=== PATIENT | female | born 1950 | race Two or more races ===

== ENCOUNTER 2020-11-25 01:40 | Inpatient (IN) | payer BC, MEDICAID ==
[~2020-11-25] VITALS: Ht 160 cm; Wt 87.8 kg
[2020-11-25] MEDS ORDERED: METOPROLOL TARTRATE 1MG/1ML-5ML VIAL IV ONE (02:00)
[2020-11-25] MEDS ORDERED: LABETALOL HCL 5 MG/ML 4ML SYRINGE IV ONE (02:00)
[2020-11-25 05:28] LABS: Basophils # (auto) 0 10 ^3/uL (0-0.2); Basophils % (auto) 0.1 % (0.0-2.0); Eosinophils # (auto) 0.1 10 ^3/uL (0-0.8); Eosinophils % (auto) 0.3 % (0.0-7.0); Hematocrit 39.6 % (36.0-46.0); Hemoglobin 12.7 g/dL (12.2-16.2); Lymphocytes # (auto) 2.7 10 ^3/uL (0.4-5.4); Lymphocytes % (auto) 14.3 % (10.0-50.0); Mean Corpuscular Volume 84.3 fL (80.0-100.0); Monocytes # (auto) 0.9 10 ^3/uL (0-1.3); Monocytes % (auto) 4.9 % (0.0-12.0); Neutrophils % (auto) 80.4 % (37.0-80.0); Red Cell Distribution Width 15.9 % (11.8-14.3); White Blood Cell 18.7 10^3/uL (4.4-10.8)
[2020-11-25 05:45] LABS: Alanine Aminotransferase 45 U/L (13-56); Albumin 3.7 g/dL (3.4-5.0); Anion Gap 11 (5-15); Aspartate Aminotransferase 35 U/L (15-37); BUN/Creatinine Ratio 30.2; Blood Urea Nitrogen 49 mg/dL (7-18); Calcium 9.2 mg/dL (8.5-10.1); Carbon Dioxide 24 mmol/L (21-32); Chloride 100 mmol/L (98-107); GFR African American 40 mL/min; GFR Non-African American 33 mL/min; Glucose 101 mg/dL (74-106); Potassium 4.1 mmol/L (3.5-5.1); Sodium 135 mmol/L (136-145)
[2020-11-25 05:50] LABS: Alkaline Phosphatase 100 U/L (45-117); Bilirubin, Total 0.4 mg/dL (0.2-1.0); Total Protein 8.3 g/dL (6.4-8.2)
[2020-11-25 06:09] LABS: Lactic Acid w/Reflex 2.1 mmol/L (0.4-2.0)
[2020-11-25] MEDS ORDERED: CEFEPIME 2 GM in SODIUM CHL 0.9% 50 ML IV ONE (08:00)
[2020-11-25] MEDS ORDERED: ENOXAPARIN SOD 100 MG/1 ML SYRINGE SC SCH ×2 (10:00→22:00)
[2020-11-25 10:11] LABS: Urine Bacteria FEW /hpf (None Seen); Urine Blood Negative /uL (Negative); Urine Specific Gravity 1.011 (1.001-1.035); Urine WBC <1 /hpf (0 - 5)
[2020-11-25] MEDS ORDERED: NITROGLYCERIN 0.4 MG SL TAB SL PRN (10:30)
[2020-11-25] MEDS ORDERED: MORPHINE SULFATE INJECTION 2 MG/ML SYRG IV PRN (10:30)
[2020-11-25] MEDS ORDERED: LACTULOSE 20Gm/30ML SOLN PO PRN ×2 (10:45)
[2020-11-25] MEDS ORDERED: ONDANSETRON HCL 4 MG/2 ML VIAL IV PRN (10:45)
[2020-11-25] MEDS ORDERED: traMADol HCL 50 MG TAB PO PRN (10:45)
[2020-11-25] MEDS ORDERED: levoFLOXacin 500MG 100 ML IV ONE (10:45)
[2020-11-25] MEDS ORDERED: DEXTROSE (50%) 50ML SYRG IV PRN (10:45)
[2020-11-25] MEDS ORDERED: TEMAZEPAM 15 MG CAP PO PRN (10:45)
[2020-11-25] MEDS ORDERED: ACETAMINOPHEN 500 MG TAB PO PRN (10:45)
[2020-11-25] MEDS ORDERED: ALBUTEROL SULF 2.5 MG/0.5ML(0.5%) NEB SOLN NEB PRN (10:45)
[2020-11-25] MEDS: ACCU-CHEK COMFORT CURVE STRIP VI SCH ×3 (11:38→21:58)
[2020-11-25] MEDS: InsuLIN REG 1unit/0.01ml Soln (100units/ml) SC SCH ×3 (11:38→21:59)
[2020-11-25] MEDS: ALBUTEROL SULF 2.5 MG/0.5ML(0.5%) NEB SOLN NEB SCH ×2 (12:00→19:23)
[2020-11-25] MEDS: IPRATROPIUM BROM 0.5 MG/2.5ML INH SOL NEB SCH ×2 (12:00→19:23)
[2020-11-25 12:15] VITALS: BP 120/78
[2020-11-25 13:00] VITALS: BP 120/58
[2020-11-25] MEDS: SODIUM CHLOR 0.9% PF (SALINE LOCK) 10ML VIAL/SYR IV SCH ×2 (13:47→21:57)
[2020-11-25 17:00] VITALS: BP 131/75
[2020-11-25] MEDS ORDERED: INSLANTI SC (17:08)
[2020-11-25] MEDS ORDERED: INSUINJ18 SC (17:08)
[2020-11-25] MEDS ORDERED: ALLO100T PO (17:08)
[2020-11-25] MEDS ORDERED: ATOR20TA50 PO (17:08)
[2020-11-25] MEDS ORDERED: MET50T PO (17:08)
[2020-11-25] MEDS ORDERED: SITA50TA28 PO (17:08)
[2020-11-25] MEDS ORDERED: AML5T PO (17:08)
[2020-11-25] MEDS ORDERED: OME20T PO (17:08)
[2020-11-25 20:45] VITALS: BP 131/75
[2020-11-25 21:43] VITALS: BP 154/94
[2020-11-25] MEDS: CARVEDILOL 3.125 MG TAB PO SCH (21:57)
[2020-11-25] MEDS: ATORVASTATIN 20 MG TAB PO SCH (21:58)
[2020-11-25] MEDS: ENOXAPARIN SOD 80 MG/0.8ML SYRINGE SC SCH (21:58)
[2020-11-25] MEDS: FAMOTIDINE 20 MG TAB PO SCH (21:58)
[2020-11-26] MEDS: IPRATROPIUM BROM 0.5 MG/2.5ML INH SOL NEB SCH ×4 (00:19→19:48)
[2020-11-26] MEDS: ALBUTEROL SULF 2.5 MG/0.5ML(0.5%) NEB SOLN NEB SCH ×4 (00:19→19:48)
[2020-11-26 05:20] VITALS: BP 132/62
[2020-11-26 05:49] LABS: Basophils # (auto) 0 10 ^3/uL (0-0.2); Basophils % (auto) 0.4 % (0.0-2.0); Eosinophils # (auto) 0.1 10 ^3/uL (0-0.8); Eosinophils % (auto) 1.4 % (0.0-7.0); Hematocrit 36.3 % (36.0-46.0); Hemoglobin 11.9 g/dL (12.2-16.2); Lymphocytes # (auto) 1.6 10 ^3/uL (0.4-5.4); Lymphocytes % (auto) 17.1 % (10.0-50.0); Mean Corpuscular Hemoglobin 27.4 pg (28.0-32.0); Mean Corpuscular Hgb Conc. 32.8 g/dL (32.0-36.0); Mean Corpuscular Volume 83.6 fL (80.0-100.0); Monocytes # (auto) 0.8 10 ^3/uL (0-1.3); Monocytes % (auto) 8.8 % (0.0-12.0); Neutrophils # (auto) 6.9 10 ^3/uL (1.6-8.6); Neutrophils % (auto) 72.3 % (37.0-80.0); Nucleated Red Blood Cells % 0.1 %; Red Blood Cells 4.34 10^6/uL (4.0-5.20); Red Cell Distribution Width 16.2 % (11.8-14.3); White Blood Cell 9.5 10^3/uL (4.4-10.8)
[2020-11-26 06:15] LABS: Albumin 3.1 g/dL (3.4-5.0); Calcium 9.8 mg/dL (8.5-10.1)
[2020-11-26 06:22] LABS: Bilirubin, Total 0.7 mg/dL (0.2-1.0); Total Protein 7.6 g/dL (6.4-8.2)
[2020-11-26] MEDS: InsuLIN REG 1unit/0.01ml Soln (100units/ml) SC SCH ×4 (06:25→22:00)
[2020-11-26] MEDS: ACCU-CHEK COMFORT CURVE STRIP VI SCH ×4 (06:25→21:52)
[2020-11-26] MEDS: SODIUM CHLOR 0.9% PF (SALINE LOCK) 10ML VIAL/SYR IV SCH ×3 (06:25→21:49)
[2020-11-26 09:00] VITALS: BP 154/66
[2020-11-26] MEDS: ENALAPRIL MALEATE 2.5 MG TAB PO SCH (09:29)
[2020-11-26] MEDS: ENOXAPARIN SOD 80 MG/0.8ML SYRINGE SC SCH (09:30)
[2020-11-26] MEDS: FAMOTIDINE 20 MG TAB PO SCH (09:30)
[2020-11-26] MEDS: CARVEDILOL 3.125 MG TAB PO SCH ×2 (09:30→21:51)
[2020-11-26] MEDS: levoFLOXacin 500MG 100 ML IV SCH (09:31)
[2020-11-26] MEDS ORDERED: FUROSEMIDE 40 MG/4 ML VIAL IV SCH (10:00)
[2020-11-26] MEDS ORDERED: POTASSIUM CHL 20 Meq TABLET PO SCH (10:00)
[2020-11-26] MEDS ORDERED: ASPirin 81 mg TAB PO SCH ×2 (10:00)
[2020-11-26] MEDS ORDERED: dilTIAZem 25 MG/5 ML VIAL IV ONE (11:00)
[2020-11-26] MEDS ORDERED: ENAL2.5T7 PO (11:27)
[2020-11-26] MEDS ORDERED: CARV6.2551 PO (11:27)
[2020-11-26] MEDS ORDERED: APIX5TAB PO (11:27)
[2020-11-26] MEDS ORDERED: LEVO500T31 PO (11:28)
[2020-11-26] MEDS ORDERED: DIGOXIN (250MCG/ML) 2 ML AMPULE IV ONE (11:30)
[2020-11-26 13:00] VITALS: BP 129/73
[2020-11-26] MEDS ORDERED: AMIODARONE HCL 150 MG in D5W 5% 100 ML IV ONE (13:00)
[2020-11-26] MEDS ORDERED: AMIODARONE 450mg/250ml AE 250 ML IV SCH ×2 (13:10→19:10)
[2020-11-26] MEDS: ALLOPURINOL 100 MG TAB PO SCH ×2 (14:00→21:52)
[2020-11-26 17:00] VITALS: BP 147/71
[2020-11-26] MEDS: ATORVASTATIN 20 MG TAB PO SCH (21:51)
[2020-11-26] MEDS: APIXABAN 5 MG TAB PO SCH (21:51)
[2020-11-26] MEDS: amLODIPine BESYLATE 5 MG TAB PO SCH (21:52)
[2020-11-26 22:00] VITALS: BP 140/56
[2020-11-27] MEDS: IPRATROPIUM BROM 0.5 MG/2.5ML INH SOL NEB SCH (00:16)
[2020-11-27] MEDS: ALBUTEROL SULF 2.5 MG/0.5ML(0.5%) NEB SOLN NEB SCH (00:17)
[2020-11-27 05:00] VITALS: BP 130/57
[2020-11-27] MEDS: SODIUM CHLOR 0.9% PF (SALINE LOCK) 10ML VIAL/SYR IV SCH (05:30)
[2020-11-27] MEDS: ALLOPURINOL 100 MG TAB PO SCH (05:30)
[2020-11-27] MEDS: ACCU-CHEK COMFORT CURVE STRIP VI SCH ×2 (05:56→11:16)
[2020-11-27] MEDS: InsuLIN REG 1unit/0.01ml Soln (100units/ml) SC SCH ×2 (05:56→11:17)
[2020-11-27 07:05] LABS: Basophils # (auto) 0 10 ^3/uL (0-0.2); Eosinophils # (auto) 0.2 10 ^3/uL (0-0.8); Mean Corpuscular Volume 82.9 fL (80.0-100.0); Nucleated Red Blood Cells % 0.2 %
[2020-11-27 07:07] LABS: Basophils % (auto) 0.6 % (0.0-2.0); Eosinophils % (auto) 1.9 % (0.0-7.0); Hematocrit 36.2 % (36.0-46.0); Lymphocytes % (auto) 24.8 % (10.0-50.0); Mean Corpuscular Hemoglobin 27.5 pg (28.0-32.0); Mean Corpuscular Hgb Conc. 33.1 g/dL (32.0-36.0); Monocytes # (auto) 0.9 10 ^3/uL (0-1.3); Monocytes % (auto) 10.9 % (0.0-12.0); Neutrophils % (auto) 61.8 % (37.0-80.0); Red Blood Cells 4.36 10^6/uL (4.0-5.20); Red Cell Distribution Width 15.8 % (11.8-14.3)
[2020-11-27 07:29] LABS: Calcium 9.2 mg/dL (8.5-10.1); Potassium 4.5 mmol/L (3.5-5.1)
[2020-11-27 09:00] VITALS: BP 144/68
[2020-11-27] MEDS: amLODIPine BESYLATE 5 MG TAB PO SCH (09:39)
[2020-11-27] MEDS: CARVEDILOL 3.125 MG TAB PO SCH (09:40)
[2020-11-27] MEDS: ENALAPRIL MALEATE 2.5 MG TAB PO SCH (09:41)
[2020-11-27] MEDS: FAMOTIDINE 20 MG TAB PO SCH (09:41)
[2020-11-27] MEDS: levoFLOXacin 500MG 100 ML IV SCH (09:41)
[2020-11-27] MEDS: APIXABAN 5 MG TAB PO SCH (09:41)
== END 2020-11-27 13:15 | disposition home health service (06) | DRG 189 ==
LOC: ER 01:41 → TELE 01:42 → TELE-EAST 12:21 → TELE-WESTW 19:55
PROVIDERS: ADMIT Internal Medicine; ATTEND Internal Medicine
DX: J96.01 Acute respiratory failure with hypoxia (principal); J18.9 Pneumonia, unspecified organism; J98.11 Atelectasis; I25.10 Atherosclerotic heart disease of native coronary artery without angina pectoris; K29.70 Gastritis, unspecified, without bleeding; E11.22 Type 2 diabetes mellitus with diabetic chronic kidney disease; Z68.33 Body mass index [BMI] 33.0-33.9, adult; E66.01 Morbid (severe) obesity due to excess calories; E78.5 Hyperlipidemia, unspecified; I12.9 Hypertensive chronic kidney disease with stage 1 through stage 4 chronic kidney disease, or unspecified chronic kidney disease; Z79.01 Long term (current) use of anticoagulants; Z79.4 Long term (current) use of insulin; Z83.3 Family history of diabetes mellitus; K21.9 Gastro-esophageal reflux disease without esophagitis; Z79.899 Other long term (current) drug therapy; Z20.822 Contact with and (suspected) exposure to COVID-19; R79.89 Other specified abnormal findings of blood chemistry; D72.829 Elevated white blood cell count, unspecified; N18.31 Chronic kidney disease, stage 3a; I48.91 Unspecified atrial fibrillation
CPT/HCPCS: 36415; 36600; 71045; 78582; 80048; 80053; 81001; 82550; 82805; 82962; 83036; 83605; 83880; 84484; 85025; 85379; 87040; 87426; 87804; 93005; 93306; 93970; 94640; 96365; 96367; 96372; 96375; G0378; J1815; J1956; J3490; J7060